=== PATIENT | male | born 1965 | race Caucasian/White ===

== ENCOUNTER 2023-05-22 22:54 | Emergency (ER) | payer BC ==
[2023-05-22] MEDS ORDERED: ACETAMINOPHEN 500 MG TABLET PO STA (23:17)
[2023-05-22] MEDS ORDERED: ceFAZolin (2G) 2 GM in SODIUM CHLORIDE 0.9% 100ML 100 ML IV STA (23:19)
[2023-05-22 23:42] LABS: BASOPHILS % (AUTO) 0.3 %; EOSINOPHILS # (AUTO) 0.1 10^3/uL (0.0-0.7); EOSINOPHILS % (AUTO) 0.9 %; HCT - HEMATOCRIT 37.7 % (42.0-52.0); HGB - HEMOGLOBIN 12.9 g/dL (14.0-18.0); LYMPHOCYTES # (AUTO) 0.6 10^3/uL (1.5-3.5); MEAN CORPUSCULAR HEMOGLOBIN 31.3 pg (27.0-31.0); MEAN CORPUSCULAR HGB CONC 34.2 g/dL (32.0-36.0); MEAN CORPUSCULAR VOLUME 91.5 fL (80.0-94.0); MEAN PLATELET VOLUME 10.2 fL (7.4-11.4); MONOCYTES # (AUTO) 0.4 10^3/uL (0.0-1.0); MONOCYTES % (AUTO) 6.9 %; NEUTROPHILS # (AUTO) 5.2 10^3/uL (1.5-6.6); NEUTROPHILS % (AUTO) 82.4 %; PLT - PLATELET COUNT 118 10^3/uL (130-450); RED BLOOD COUNT 4.12 10^6/uL (4.70-6.10); RED CELL DISTRIBUTION WIDTH 12.5 % (12.0-15.0); WHITE BLOOD COUNT 6.3 x10^3/uL (4.8-10.8)
[2023-05-22] MEDS ORDERED: ONDANSETRON 4 MG/2 ML VIAL IVP STA (23:54)
[2023-05-22 23:59] LABS: ALBUMIN 4.1 g/dL (3.2-5.5); ALBUMIN/GLOBULIN RATIO 1.3 (1.0-2.2); BILIRUBIN,TOTAL 0.9 mg/dL (0.2-1.0); CALCIUM 9.5 mg/dL (8.5-10.3); CREATININE 1.3 mg/dL (0.6-1.3); POTASSIUM 3.3 mmol/L (3.5-4.5); TOTAL PROTEIN 7.2 g/dL (6.4-8.9)
[2023-05-23] MEDS ORDERED: ceFAZolin 2 GM VIAL ONE (00:06)
[2023-05-23] MEDS ORDERED: ONDANSETRON 4 MG/2 ML VIAL ONE (00:09)
[2023-05-23] MEDS ORDERED: SODIUM CHLORIDE 0.9% 1,000 ML IV STA (00:27)
[2023-05-23] MEDS ORDERED: MAG HYDROX/AL HYDROX/SIMETH 30 ML UDC PO STA (00:47)
[2023-05-23] MEDS ORDERED: LIDOCAINE VISCOUS 2% 15 ML ORAL SYRINGE MM STA (00:47)
[2023-05-23] MEDS ORDERED: VANCOMYCIN INJ 1 GM in SODIUM CHLORIDE 0.9% 500 ML IV STA (01:03)
--- NOTE | 2023-05-23 01:03 | ED Physician Documentation ---
History of Present Illness - Stated complaint Stated Complaint: LT LEG SWOLLEN,LT LEG PX - Chief complaint Chief Complaint: Wound - History obtained from History obtained from: Patient - Additonal information Additional information: Patient is a 58-year-old male with no significant prior medical history presenting for evaluation of redness and swelling to his left lower leg that has been present for the past 2 days. He has reported feeling feverish. He states that his symptoms started Tuesday but he has had mosquito bites to the leg that he has been scratching at. Denies injury. He noticed the redness on Tuesday and has since been progressively worsening. No history of PE or DVT. He also reports he has been having nausea and vomiting since Tuesday. Currently reports feeling nauseous and also having some heartburn. Denies chest pain, shortness of air. Has recently gotten over bronchitis and reports still having some lingering congestion. Has not recently taken a COVID test. Review of Systems Constitutional: reports: Fever Nose: reports: Congestion Cardiac: denies: Chest pain / pressure Respiratory: denies: Dyspnea GI: reports: Nausea, Vomiting. denies: Abdominal Pain : denies: Dysuria Skin: reports: Rash PD PAST MEDICAL HISTORY - Past Medical History Past Medical History: No - Past Surgical History Past Surgical History: No - Present Medications Home Medications: Ambulatory Orders Medication Instructions Recorded Confirmed Ondansetron Odt [Zofran] 4 mg TL Q6H PRN #10 tablet 05/23/23 Sulfamethox/Trimeth 800/160 1 each PO BID #14 tablet 05/23/23 [Bactrim Ds 800/160] cephALEXin [Keflex] 500 mg PO Q6H #28 cap 05/23/23 - Allergies Allergies/Adverse Reactions: Allergies Allergy/AdvReac Type Severity Reaction Status Date / Time No Known Drug Allergies Allergy Verified 05/22/23 23:06 - Social History Does the pt smoke?: No Smoking Status: Never smoker Does the pt drink ETOH?: Yes ETOH Use: Beer, Liquor Does the pt have substance abuse?: No - Immunizations Immunizations are current?: Yes - POLST Patient has POLST: No PD ED PE NORMAL - General General: Alert and oriented X 3, No acute distress, Well developed/nourished - HEENT HEENT: Atraumatic, Moist mucous membranes, Pharynx benign - Neck Neck: Supple, no meningeal sign - Cardiac Cardiac: RRR, No murmur - Respiratory Respiratory: No respiratory distress, Clear bilaterally - Abdomen Abdomen: Normal bowel sounds, Soft, Non tender, Non distended - Extremities Extremities: Other (Multiple wounds to left anterior rodrigues consistent with history of insect bites, raised erythema involving the lower leg with surrounding faint blanching erythema extending proximally to thigh, distal pulses intact) - Neuro Neuro: Normal speech Results - Vitals Vitals: Vital Signs - 24 hr 05/22/23 05/22/23 05/23/23 23:03 23:53 00:10 Temperature 37.9 C Heart Rate 89 72 78 Respiratory 16 17 17 Rate Blood Pressure 169/87 H 149/89 H 171/97 H O2 Saturation 99 99 100 05/23/23 05/23/23 05/23/23 00:59 01:42 02:19 Temperature 37.4 C 37.2 C Heart Rate 72 70 68 Respiratory 16 16 16 Rate Blood Pressure 174/79 H 177/89 H 147/90 H O2 Saturation 100 98 100 05/23/23 05/23/23 03:01 03:53 Temperature 37.2 C Heart Rate 66 68 Respiratory 15 16 Rate Blood Pressure 140/88 H 149/86 H O2 Saturation 100 99 Oxygen O2 Source Room air - Labs Labs: Laboratory Tests 05/22/23 05/22/23 05/22/23 23:26 23:26 23:26 WBC 6.3 RBC 4.12 L Hgb 12.9 L Hct 37.7 L MCV 91.5 MCH 31.3 H MCHC 34.2 RDW 12.5 Plt Count 118 L MPV 10.2 Neut # (Auto) 5.2 Lymph # (Auto) 0.6 L [place] # (Auto) 0.4 Eos # (Auto) 0.1 Baso # (Auto) 0.0 Absolute Nucleated RBC 0.00 Nucleated RBC % 0.0 Sodium 128 L Potassium 3.3 L Chloride 92 L Carbon Dioxide 29 Anion Gap 7.0 BUN 17 Creatinine 1.3 Estimated GFR (MDRD) 57 L Glucose 133 H Lactic Acid 1.0 Calcium 9.5 Total Bilirubin 0.9 AST 33 ALT 29 Alkaline Phosphatase 56 Total Protein 7.2 Albumin 4.1 Globulin 3.1 Albumin/Globulin Ratio 1.3 SARS-CoV-2 (PCR) 05/22/23 23:30 WBC RBC Hgb Hct MCV MCH MCHC RDW Plt Count MPV Neut # (Auto) Lymph # (Auto) [place] # (Auto) Eos # (Auto) Baso # (Auto) Absolute Nucleated RBC Nucleated RBC % Sodium Potassium Chloride Carbon Dioxide Anion Gap BUN Creatinine Estimated GFR (MDRD) Glucose Lactic Acid Calcium Total Bilirubin AST ALT Alkaline Phosphatase Total Protein Albumin Globulin Albumin/Globulin Ratio SARS-CoV-2 (PCR) NOT DETECTED PD Medical Decision Making - ED course Complexity details: reviewed results, re-evaluated patient, d/w patient, d/w family ED course: Patient is a 58-year-old male presenting for evaluation of redness and swelling to his left lower leg. Patient had an area of mosquito bites to the left rodrigues that he has been scratching at and appears that he has developed an associated cellulitis. I do not see any fluctuance to suggest abscess or deep space infection. Patient has low-grade fever here of 37.9. Sepsis work-up initiated due to fever. Normal white count and negative lactic. Mild hyponatremia noted on labs. Patient has also recently had some nausea and vomiting for the past 2 days but abdominal exam is benign. Patient was treated with IV fluids, Zofran as well as IV antibiotics since he has not had much to eat or drink for the past 2 days. He is feeling better with treatment here. Patient appears appropriate for outpatient management of the cellulitis. Exam is more consistent with an infectious etiology versus a DVT. Patient counseled on treatment plan, need for follow-up as well as concerning symptoms to return for. Departure - Departure Disposition: 01 Home, Self Care Clinical Impression: Left leg cellulitis, Hyponatremia, Nausea & vomiting, Low grade fever Condition: Stable Instructions: ED Infec Skin Cellulitis Prescriptions: Sulfamethox/Trimeth 800/160 [Bactrim Ds 800/160] 1 each PO BID #14 tablet cephALEXin [Keflex] 500 mg PO Q6H #28 cap Ondansetron Odt [Zofran] 4 mg TL Q6H PRN #10 tablet PRN Reason: Nausea / Vomiting Comments: You were evaluated and treated for a skin infection to your left leg. I have given you a dose of IV antibiotics this evening and of also sent prescriptions for oral antibiotics to [facility] in [place]. Your sodium and potassium levels were slightly low today likely related to recent nausea and vomiting. I have also written a prescription for antinausea medications. Please make sure that you continue to try and stay hydrated. We have obtained blood cultures which will show if there is any spread of infection to your blood [employer] and notify you of any abnormal results. Your COVID test is negative. I would recommend close follow-up with her primary care provider. You should have your blood pressure rechecked. Please return to the emergency department with any worsening symptoms such as continued fever, increased redness, increased pain or any new concerns. Forms: PCP List Discharge Date/Time: 05/23/23 03:55
[2023-05-23] MEDS ORDERED: VANCOMYCIN 1 GM VIAL ONE ×2 (01:24→01:41)
[2023-05-23] MEDS ORDERED: VANCOMYCIN INJ 2 GM in SODIUM CHLORIDE 0.9% 500 ML IV STA (01:31)
[2023-05-23] MEDS ORDERED: ONDANSETRON ODT 4 MG Prepack 2 TL PRN (02:03)
[2023-05-23] MEDS ORDERED: ONDANSETRON ODT 4 MG Prepack 2 TL ONE (02:24)
[2023-05-23 04:01] VITALS: BP 149/86; O2SAT 99
== END 2023-05-23 03:55 | disposition home or self-care (01) ==
LOC: ED 22:54
DX: L03.116 Cellulitis of left lower limb (principal); E87.1 Hypo-osmolality and hyponatremia; R11.2 Nausea with vomiting, unspecified; R50.9 Fever, unspecified; Z20.822 Contact with and (suspected) exposure to COVID-19
CPT/HCPCS: 36415; 80053; 83605; 85025; 87040; 87635; 96365; 96366; 96367; 96375; 99283; 99284; A9270; J3370

== ENCOUNTER 2023-05-26 10:31 | Emergency (ER) | payer BC ==
[2023-05-26 10:49] VITALS: O2SAT 100
--- NOTE | 2023-05-26 11:58 | ED Physician Documentation ---
History of Present Illness - Stated complaint Stated Complaint: LT LEG SWELLING - Chief complaint Chief Complaint: Ext Problem - History obtained from History obtained from: Patient - History of Present Illness Timing: How many weeks ago (1) Pain level max: 5 Pain level now: 3 - Additonal information Additional information: Patient is a 58-year-old male who to the emergency department left lower extremity redness and swelling. This is been ongoing for about the past week. He states that he was having more pain previously and that is improving but feels like the swelling and redness are worsening. Apparently this started after scratching insect bites to the left lower extremity. No fevers. No chills. He states the redness has not really changed much. No nausea or vomiting. No abdominal pain. He is currently on Bactrim and Keflex at home. Does not take any other medications. No history of blood clots or DVTs. No history of diabetes. Review of Systems Constitutional: denies: Fever, Chills Respiratory: denies: Cough GI: denies: Abdominal Pain, Nausea, Vomiting : denies: Dysuria Musculoskeletal: denies: Neck pain, Back pain Neurologic: denies: Headache PD PAST MEDICAL HISTORY - Past Medical History Past Medical History: No - Past Surgical History Past Surgical History: No - Present Medications Home Medications: Ambulatory Orders Medication Instructions Recorded Confirmed Ondansetron Odt [Zofran] 4 mg TL Q6H PRN #10 tablet 05/23/23 05/26/23 Sulfamethox/Trimeth 800/160 1 each PO BID #14 tablet 05/23/23 05/26/23 [Bactrim Ds 800/160] cephALEXin [Keflex] 500 mg PO Q6H #28 cap 05/23/23 05/26/23 Amox/Clav 875/125 [Augmentin] 1 tab PO Q12H #20 tablet 05/26/23 Doxycycline Monohydrate 100 mg PO BID #20 cap 05/26/23 - Allergies Allergies/Adverse Reactions: Allergies Allergy/AdvReac Type Severity Reaction Status Date / Time No Known Drug Allergies Allergy Verified 05/22/23 23:06 - Social History Does the pt smoke?: No Smoking Status: Never smoker Does the pt drink ETOH?: Yes Does the pt have substance abuse?: No - Family History Family history: reports: Non contributory - Immunizations Immunizations are current?: Yes - POLST Patient has POLST: No PD ED PE NORMAL - Vitals Vital signs reviewed: Yes - General General: Alert and oriented X 3, No acute distress - HEENT HEENT: PERRL, Moist mucous membranes - Neck Neck: Supple, no meningeal sign - Cardiac Cardiac: RRR, Strong equal pulses - Respiratory Respiratory: No respiratory distress, Clear bilaterally - Abdomen Abdomen: Soft, Non tender, Non distended - Back Back: No spinal TTP - Derm Derm: Warm and dry, No rash - Extremities Extremities: Other (LLE - Moderate swelling to the left calf. Mild posterior calf tenderness. There is no erythema to the anterior and medial aspects of the calf. No significant warmth. No pustules or vesicles. Neurovascular intact. no crepitus or streaking) - Neuro Neuro: Alert and oriented X 3 - Psych Psych: Normal mood, Normal affect Results - Vitals Vitals: Vital Signs - 24 hr 05/26/23 05/26/23 10:39 13:09 Temperature 36.6 C Heart Rate 73 63 Respiratory 18 18 Rate Blood Pressure 167/91 H 173/95 H O2 Saturation 100 100 Oxygen O2 Source Room air - Labs Labs: Laboratory Tests 05/26/23 05/26/23 05/26/23 12:05 12:05 12:05 WBC 5.4 RBC 4.27 L Hgb 13.2 L Hct 39.7 L MCV 93.0 MCH 30.9 MCHC 33.2 RDW 12.6 Plt Count 211 MPV 9.8 Neut # (Auto) 3.5 Lymph # (Auto) 0.9 L [place] # (Auto) 0.5 Eos # (Auto) 0.3 Baso # (Auto) 0.0 Absolute Nucleated RBC 0.00 Nucleated RBC % 0.0 ESR 89 H Sodium 138 Potassium 4.6 H Chloride 104 Carbon Dioxide 27 Anion Gap 7.0 BUN 17 Creatinine 1.1 Estimated GFR (MDRD) 69 L Glucose 115 H Calcium 9.3 C-Reactive Protein 11.6 H - Rads (name of study) duplex US LLE Relevant Findings:: Final report received, See rad report PD Medical Decision Making - ED course Complexity details: reviewed results, re-evaluated patient, considered differential, d/w patient ED course: Patient with a continued cellulitis of the left lower extremity. Duplex ultrasound was ordered to rule out DVT. No DVT. Inflammatory markers remain elevated. The area is not itchy. We will change antibiotics to Augmentin and doxycycline. Patient is well-appearing, nontoxic. Afebrile. No evidence of sepsis. No indication for IV antibiotics. No pustules, vesicles. Patient counseled regarding signs and symptoms for which I believe and urgent re- evaluation would be necessary. Patient with good understanding of and agreement to plan and is comfortable going home at this time This document was made in part using voice recognition software. While efforts are made to proofread this document, sound alike and grammatical errors may occ ur. Departure - Departure Disposition: Home, Self Care Clinical Impression: Left leg cellulitis Condition: Good Instructions: ED Infec Skin Cellulitis Follow-Up: your,doctor in 1 week [Other] Prescriptions: Amox/Clav 875/125 [Augmentin] 1 tab PO Q12H #20 tablet Doxycycline Monohydrate 100 mg PO BID #20 cap Comments: Your prescriptions were sent to [facility] in [place]. Please follow-up with your doctor in 1 week for recheck. Please return sooner if you worsen. You can stop the Keflex and the Bactrim. There is no evidence of blood clot on your ultrasound today. Forms: PCP List Discharge Date/Time: 05/26/23 13:09
[2023-05-26 12:11] LABS: BASOPHILS % (AUTO) 0.6 %; EOSINOPHILS # (AUTO) 0.3 10^3/uL (0.0-0.7); EOSINOPHILS % (AUTO) 5.2 %; HCT - HEMATOCRIT 39.7 % (42.0-52.0); HGB - HEMOGLOBIN 13.2 g/dL (14.0-18.0); LYMPHOCYTES # (AUTO) 0.9 10^3/uL (1.5-3.5); LYMPHOCYTES % (AUTO) 17.1 %; MEAN CORPUSCULAR HEMOGLOBIN 30.9 pg (27.0-31.0); MEAN CORPUSCULAR HGB CONC 33.2 g/dL (32.0-36.0); MEAN PLATELET VOLUME 9.8 fL (7.4-11.4); MONOCYTES # (AUTO) 0.5 10^3/uL (0.0-1.0); NEUTROPHILS # (AUTO) 3.5 10^3/uL (1.5-6.6); NEUTROPHILS % (AUTO) 65.6 %; PLT - PLATELET COUNT 211 10^3/uL (130-450); RED BLOOD COUNT 4.27 10^6/uL (4.70-6.10); RED CELL DISTRIBUTION WIDTH 12.6 % (12.0-15.0); WHITE BLOOD COUNT 5.4 x10^3/uL (4.8-10.8)
[2023-05-26 12:34] LABS: CALCIUM 9.3 mg/dL (8.5-10.3); CREATININE 1.1 mg/dL (0.6-1.3); CRP - C-REACTIVE PROTEIN 11.6 mg/dL (<0.5); POTASSIUM 4.6 mmol/L (3.5-4.5)
--- NOTE | 2023-05-26 12:44 | Ultrasound Report ---
PROCEDURE: Duplex Ext Veins Left INDICATIONS: LLE pain and swelling TECHNIQUE: Real-time imaging, as well as color and pulse Doppler interrogation, were performed of the lower extr emity deep veins from the inguinal ligament to the popliteal fossa. Attempted visualization of the ca lf veins was performed. COMPARISON: None. FINDINGS: The deep veins are normally compressible, and free of intraluminal thrombus. Color and pu lse Doppler demonstrate normal phasic intraluminal flow. There is normal augmentation response to di stal compression maneuver. There is an enlarged left inguinal lymph node measuring 3.7 x 1.3 x 3.1 cm, which is likely reactive in nature. IMPRESSION: No deep venous thrombosis of the left lower extremity. Reviewed by: Paul Irving MD on 05/26/2023 12:43 PM PDT Approved by: Paul Irving MD on 05/26/2023 12:43 PM PDT Station ID: [id number]
[2023-05-26 13:14] VITALS: BP 173/95
== END 2023-05-26 13:09 | disposition home or self-care (01) ==
LOC: ED 10:31
DX: L03.116 Cellulitis of left lower limb (principal)
CPT/HCPCS: 36415; 80048; 85025; 85651; 86140; 99283; 99284

== ENCOUNTER 2023-06-06 17:43 | Inpatient (IN) | payer BC ==
[2023-06-06] MEDS ORDERED: VANCOMYCIN INJ 2 GM in SODIUM CHLORIDE 0.9% 500 ML IV STA (20:23)
[2023-06-06] MEDS ORDERED: PIPERACILLIN/TAZOBACTAM 3.375 GM in SODIUM CHLORIDE 0.9% MINIBAG 100 ML IV STA (20:24)
[2023-06-06 20:47] LABS: BASOPHILS # (AUTO) 0.1 10^3/uL (0.0-0.1); BASOPHILS % (AUTO) 0.7 %; EOSINOPHILS # (AUTO) 0.2 10^3/uL (0.0-0.7); EOSINOPHILS % (AUTO) 2.4 %; HCT - HEMATOCRIT 40.2 % (42.0-52.0); HGB - HEMOGLOBIN 13.2 g/dL (14.0-18.0); LYMPHOCYTES # (AUTO) 1.7 10^3/uL (1.5-3.5); MEAN CORPUSCULAR HEMOGLOBIN 30.8 pg (27.0-31.0); MEAN CORPUSCULAR HGB CONC 32.8 g/dL (32.0-36.0); MEAN CORPUSCULAR VOLUME 93.7 fL (80.0-94.0); MEAN PLATELET VOLUME 9.4 fL (7.4-11.4); MONOCYTES # (AUTO) 0.6 10^3/uL (0.0-1.0); MONOCYTES % (AUTO) 8.5 %; NEUTROPHILS # (AUTO) 4.7 10^3/uL (1.5-6.6); PLT - PLATELET COUNT 322 10^3/uL (130-450); RED BLOOD COUNT 4.29 10^6/uL (4.70-6.10); RED CELL DISTRIBUTION WIDTH 12.7 % (12.0-15.0); WHITE BLOOD COUNT 7.2 x10^3/uL (4.8-10.8)
[2023-06-06] MEDS ORDERED: VANCOMYCIN 1 GM VIAL ONE (20:49)
[2023-06-06 20:56] LABS: PARTIAL THROMBOPLASTIN TIME 32.6 secs (24.9-33.3)
[2023-06-06 21:00] LABS: ALBUMIN 4.2 g/dL (3.2-5.5); ALBUMIN/GLOBULIN RATIO 1.2 (1.0-2.2); BILIRUBIN,TOTAL 0.6 mg/dL (0.2-1.0); CREATININE 0.9 mg/dL (0.6-1.3); CRP - C-REACTIVE PROTEIN 3.7 mg/dL (<0.5); INR 1.2 (0.8-1.2); POTASSIUM 4.2 mmol/L (3.5-4.5); PT - PROTHROMBIN TIME 12.9 secs (9.9-12.6); TOTAL PROTEIN 7.7 g/dL (6.4-8.9)
[2023-06-06] MEDS ORDERED: MORPHINE 2 MG/ML CARPUJECT IVP STA (21:00)
--- NOTE | 2023-06-06 21:06 | ED Physician Documentation ---
History of Present Illness - Stated complaint Stated Complaint: L LEG PX - Chief complaint Chief Complaint: Ext Problem - History obtained from History obtained from: Patient - History of Present Illness Timing: How many weeks ago (several) Pain level max: 8 Pain level now: 8 - Additonal information Additional information: Patient is a 58-year-old male who presents to the emergency department left lower extremity swelling, redness and warmth. Ongoing for the past several weeks. He has been on several oral antibiotics including Keflex, Bactrim, Augmentin and doxycycline. The redness has continued to spread, now having drainage from the wounds. Also has scabbing to the leg. Had a negative ultrasound approximately 10 days ago. No fevers. No chills. Patient denies any other medical history. Nothing makes it better or worse. Review of Systems Constitutional: denies: Fever, Chills GI: denies: Nausea, Vomiting, Diarrhea Skin: denies: Rash Musculoskeletal: denies: Neck pain, Back pain Neurologic: denies: Headache PD PAST MEDICAL HISTORY - Past Medical History Past Medical History: No - Past Surgical History Past Surgical History: No - Present Medications Home Medications: Ambulatory Orders Medication Instructions Recorded Confirmed No Known Home Medications 06/06/23 06/06/23 - Allergies Allergies/Adverse Reactions: Allergies Allergy/AdvReac Type Severity Reaction Status Date / Time No Known Drug Allergies Allergy Verified 05/22/23 23:06 - Social History Does the pt smoke?: No Smoking Status: Never smoker Does the pt drink ETOH?: Yes Does the pt have substance abuse?: No - Immunizations Immunizations are current?: Yes - POLST Patient has POLST: No PD ED PE NORMAL - Vitals Vital signs reviewed: Yes - General General: Alert and oriented X 3, No acute distress - HEENT HEENT: Moist mucous membranes - Neck Neck: Supple, no meningeal sign - Cardiac Cardiac: RRR, Strong equal pulses - Respiratory Respiratory: No respiratory distress, Clear bilaterally - Abdomen Abdomen: Soft, Non tender, Non distended - Derm Derm: Warm and dry - Extremities Extremities: Other (LLE - Erythema, warmth and swelling to the left lower extremity, mainly around the calf. There is scabbing and open wounds to the medial aspect of the calf. No active drainage currently. No crepitus. Neurovascularly intact) - Neuro Neuro: Alert and oriented X 3 - Psych Psych: Normal mood, Normal affect Results - Vitals Vitals: Vital Signs - 24 hr 06/06/23 06/06/23 06/06/23 17:45 17:51 18:36 Temperature 36.7 C 36.8 C 36.8 C Heart Rate 77 76 76 Respiratory 20 18 18 Rate Blood Pressure 151/90 H 148/88 H 148/88 H O2 Saturation 100 100 100 06/06/23 21:00 Temperature Heart Rate 70 Respiratory 18 Rate Blood Pressure 129/79 O2 Saturation 98 Oxygen O2 Source Room air - Labs Labs: Laboratory Tests 06/06/23 06/06/23 06/06/23 20:39 20:39 20:39 WBC 7.2 RBC 4.29 L Hgb 13.2 L Hct 40.2 L MCV 93.7 MCH 30.8 MCHC 32.8 RDW 12.7 Plt Count 322 MPV 9.4 Neut # (Auto) 4.7 Lymph # (Auto) 1.7 [place] # (Auto) 0.6 Eos # (Auto) 0.2 Baso # (Auto) 0.1 Absolute Nucleated RBC 0.00 Nucleated RBC % 0.0 ESR PT 12.9 H INR 1.2 APTT 32.6 Sodium 139 Potassium 4.2 Chloride 103 Carbon Dioxide 29 Anion Gap 7.0 BUN 20 Creatinine 0.9 Estimated GFR (MDRD) 87 L Glucose 107 H Lactic Acid Calcium 9.0 Total Bilirubin 0.6 AST 17 ALT 23 Alkaline Phosphatase 73 C-Reactive Protein 3.7 H Total Protein 7.7 Albumin 4.2 Globulin 3.5 Albumin/Globulin Ratio 1.2 Lipase 17 06/06/23 06/06/23 20:39 20:39 WBC RBC Hgb Hct MCV MCH MCHC RDW Plt Count MPV Neut # (Auto) Lymph # (Auto) [place] # (Auto) Eos # (Auto) Baso # (Auto) Absolute Nucleated RBC Nucleated RBC % ESR 68 H PT INR APTT Sodium Potassium Chloride Carbon Dioxide Anion Gap BUN Creatinine Estimated GFR (MDRD) Glucose Lactic Acid 0.7 Calcium Total Bilirubin AST ALT Alkaline Phosphatase C-Reactive Protein Total Protein Albumin Globulin Albumin/Globulin Ratio Lipase PD Medical Decision Making - ED course Complexity details: reviewed results, re-evaluated patient, considered differential, d/w patient, d/w family ED course: 58-year-old male with what appears to be a worsening cellulitis of the left lower extremity. He has been on Augmentin, doxycycline, Bactrim and Keflex with no improvement of his symptoms. Wound culture will be obtained. Blood cultures obtained. Normal white blood cell count, but given the worsening cellulitis despite 4 different antibiotics, we will admit for IV antibiotics and further care. Had a negative ultrasound at his last ED visit. No evidence of DVT at that time. There are no beds available in the hospital [facility], therefore he will be boarded in the emergency department with the plan to be admitted in the morning following discharges. Patient is signed out to Dr. Montero for further care. This document was made in part using voice recognition software. While efforts are made to proofread this document, sound alike and grammatical errors may occur. Departure - Departure Disposition: 66 [facility] DC/[facility] Clinical Impression: Left leg cellulitis Condition: Stable Forms: PCP List
[2023-06-06] MEDS ORDERED: ONDANSETRON 4 MG/2 ML VIAL IVP PRN (21:34)
[2023-06-06] MEDS ORDERED: ACETAMINOPHEN 500 MG TABLET PO PRN (21:34)
[2023-06-06] MEDS ORDERED: PIPERACILLIN/TAZOBACTAM 3.375 GM in SODIUM CHLORIDE 0.9% MINIBAG 100 ML IV SCH (22:00)
[2023-06-06 23:34] LABS: BILIRUBIN,URINE NEGATIVE (NEGATIVE); GLUCOSE, URINE (UA) NEGATIVE (NEGATIVE); KETONES,URINE (UA) NEGATIVE (NEGATIVE); LEUKOCYTE ESTERASE, URINE NEGATIVE (NEGATIVE); NITRITE,URINE NEGATIVE (NEGATIVE); OCCULT BLOOD,URINE NEGATIVE (NEGATIVE); PROTEIN,URINE NEGATIVE (NEGATIVE); UROBILINOGEN,URINE 0.2 (NORMAL) E.U./dL (NORMAL)
[2023-06-06 23:39] LABS: CLARITY,URINE CLEAR (CLEAR)
[2023-06-07] MEDS: MORPHINE 2 MG/ML CARPUJECT IVP PRN ×3 (01:55→11:50)
[2023-06-07 05:24] LABS: BASOPHILS % (AUTO) 0.7 %; EOSINOPHILS # (AUTO) 0.1 10^3/uL (0.0-0.7); EOSINOPHILS % (AUTO) 2.3 %; HCT - HEMATOCRIT 33.9 % (42.0-52.0); HGB - HEMOGLOBIN 11.2 g/dL (14.0-18.0); LYMPHOCYTES # (AUTO) 1.4 10^3/uL (1.5-3.5); LYMPHOCYTES % (AUTO) 22.9 %; MEAN CORPUSCULAR HEMOGLOBIN 30.9 pg (27.0-31.0); MEAN CORPUSCULAR VOLUME 93.6 fL (80.0-94.0); MEAN PLATELET VOLUME 9.1 fL (7.4-11.4); MONOCYTES # (AUTO) 0.6 10^3/uL (0.0-1.0); MONOCYTES % (AUTO) 9.7 %; NEUTROPHILS # (AUTO) 3.8 10^3/uL (1.5-6.6); NEUTROPHILS % (AUTO) 64.1 %; PLT - PLATELET COUNT 243 10^3/uL (130-450); RED BLOOD COUNT 3.62 10^6/uL (4.70-6.10); RED CELL DISTRIBUTION WIDTH 12.8 % (12.0-15.0)
[2023-06-07 05:46] LABS: CALCIUM 8.3 mg/dL (8.5-10.3); CREATININE 1.1 mg/dL (0.6-1.3)
[2023-06-07] MEDS ORDERED: VANCOMYCIN 1 GM VIAL ONE (06:34)
[2023-06-07] MEDS ORDERED: PIPERACILLIN/TAZOBACTAM 3.375 GM in SODIUM CHLORIDE 0.9% MINIBAG 100 ML IV SCH (07:00)
[2023-06-07] MEDS ORDERED: PANTOPRAZOLE 40 MG TABLET PO SCH (07:00)
--- NOTE | 2023-06-07 07:37 | ED Physician Documentation ---
ED Addendum - Addendum Addendum: 06/07/23 07:36 The patient was signed out to me at change of shift, pending admission for cellulitis that is failed outpatient treatment. Unfortunately, we did not have any available inpatient beds overnight and so the patient had to board in the emergency department. He has received appropriate doses of antibiotics and at this point, we are going to have to wait for the morning report to determine whether there will be a bed available on the inpatient floor for the patient to be transferred to. At that time, if a bed is available, then we will be able to have a conversation with the hospitalist. The patient is signed out to the [facility] emergency physician Dr. Armstrong, pending the above.
[2023-06-07] MEDS ORDERED: VANCOMYCIN INJ 1 GM, VANCOMYCIN INJ 500 MG in SODIUM CHLORIDE 0.9% 500 ML IV SCH (09:00)
--- NOTE | 2023-06-07 09:24 | ED Physician Documentation ---
ED Addendum - Addendum Addendum: 06/07/23 09:23 58-year-old Philip Ashley reports that several weeks ago he returned from a trip to [place] where he was on his feet a lot and noted some swelling to his left lower extremity he was diagnosed with cellulitis and has failed outpatient management. He has had a change to his antibiotic and despite this had progression and presented to the emergency department last night with pain and increased swelling. Overnight he has had improvement in his symptoms. He continues to have significant swelling to the left lower extremity. A venous duplex was performed without evidence of deep vein thrombosis. The patient is 6 foot 6 inches tall and a arterial ultrasound is ordered with what appears to be poor healing to the skin. This study demonstrated normal blood flow to the lower extremity. The patient was eventually admitted into the hospital under the care of Dr. Lopez 06/07/23 13:20 06/07/23 19:28 Impression: Cellulitis lower ext failing out patient management. Plan: Admit for IV abx
--- NOTE | 2023-06-07 11:04 | Ultrasound Report ---
PROCEDURE: Duplex Lwr Ext Arterial LT INDICATIONS: poor healing TECHNIQUE: Color and pulse Doppler interrogation was performed of the left lower extremity arterial system, with image documentation. COMPARISON: None FINDINGS: Common femoral artery: 140 cm/sec, with normal flow. Deep femoral artery: 96 cm/sec, with normal flow. Proximal superficial femoral artery: 156 cm/sec, with normal flow. Mid superficial femoral artery: 158 cm/sec, with normal flow. Distal superficial femoral artery: 147 cm/sec, with normal flow. Popliteal artery: 107 cm/sec, with normal flow. Posterior tibial artery: 72 cm/sec, with normal flow. Anterior tibial artery/dorsalis pedis: 66/116 cm/sec, with normal flow. Felix-scale imaging description: No plaque visualized. IMPRESSION: No hemodynamic stenosis or plaque visualized within the left lower arterial vasculature. Reviewed by: Tiffany Kahn MD on 06/07/2023 11:02 AM PDT Approved by: Tiffany Kahn MD on 06/07/2023 11:02 AM PDT Station ID: [id number]
[2023-06-07] MEDS ORDERED: ONDANSETRON 4 MG/2 ML VIAL IVP PRN (13:23)
[2023-06-07] MEDS ORDERED: SODIUM CHLORIDE FLUSH 0.9% 10 ML SYRINGE IVP PRN (13:23)
--- NOTE | 2023-06-07 13:34 | HISTORY & PHYSICAL EXAMINATION ---
Chief Complaint - Chief Complaint Chief Complaint: L leg cellulitis, has failed 2 diff courses of antibx History of Present Illness - Admitted From Admitted From:: ED - History Obtained From History obtained from: ED provider and the pt - History of Present Illness HPI Comment/Other: This is a 58-year-old male who has a Hx of childhood asthma, but usually takes no medicines at home. He presented to the ED on 05/22/23 with c/o fever and shaking chills an left groinn and left leg swelling and was diagnosed with cellulitis and discharged from the ER to take Keflex and Bactrim. He presented back to the ED 3 days later with improvement in the groin swelling but worsening of the leg pain and swelling. A leg ultrasound was done then that ruled out a DVT. He had antibiotics changed to Augmentin and Doxycycline and was discharged from the ED. He comes back a third time now on 06/06/23 with more pain, worse redness, more diffuse swelling from the knee down, despite taking all the prescribed antibiotics. He also says there were blebs now on the medial lower left leg which occasionally ooze liquid. An arterial ultrasound was done to look for ischemia as a cause of poor leg healing and this was normal. Wound cultures and blood cultures have been obtained. His WBC is normal but ESR is abnormally elevated at 68. The patient has now been started on IV Vancomycin and Zosyn. The ED provider spoke to me about this patient. He will be admitted to the Hospitalist service for managing cellulitis that has failed outpatient treatment. History - Past Medical History Cardiovascular: reports: None Respiratory: reports: Asthma (Childhood asthma. Whenever he gets a URI it "settles in his lungs" and he has a 2-month cough) Neuro: reports: None Endocrine/Autoimmune: reports: None GI: reports: Ulcers (remote Hx) : reports: None HEENT: reports: None Psych: reports: None Musculoskeletal: reports: None Derm: reports: None MRSA Hx?: No - Family & Social History Family History: Father: Alive and Well, COPD/Emphysema Family History Comment/Other: His father has COPD. His daughter has asthma. Living arrangement: At home Living Situation: With spouse/s.o. Social History Notes: He does not smoke cigarettes and never did. He drinks 2 alcoholic drinks per day (whiskey usually). He has never had alcohol w ithdrawal. He uses no marijuana or any illicit drugs. He works at [employer] in [employer]. - Substance History Use: Uses substance without health or social issues: NONE - POLST Patient has POLST: No Meds/Allgy - Home Medications Home Medications: Ambulatory Orders Medication Instructions Recorded Confirmed No Known Home Medications 06/06/23 06/06/23 - Allergies Allergies/Adverse Reactions: Allergies Allergy/AdvReac Type Severity Reaction Status Date / Time No Known Drug Allergies Allergy Verified 05/22/23 23:06 Review of Systems - Constitutional Constitutional: reports: Fever (He had 2 days of fever on 05/21 and 05/22 but none since any of the antibiotics were started) - All Other Systems All Other Systems: reports: Reviewed and negative Exam - Vital Signs Reviewed Vital Signs: Yes Vital Signs: Vital Signs x48h Pulse Resp BP Pulse Ox 06/07/23 12:16 61 16 124/76 97 06/07/23 09:04 68 18 126/82 H 97 06/07/23 07:39 54 L 14 114/56 L 97 06/07/23 05:51 60 18 117/64 98 - Physical Exam General Appearance: positive: No acute distress, Other (Obese male, appears older than his age) Eyes Bilateral: positive: Normal inspection, EOMI ENT: positive: ENT inspection nml, No signs of dehydration Neck: positive: Nml inspection, No JVD Respiratory: positive: No respiratory distress, Breath sounds nml Cardiovascular: positive: Regular rate & rhythm, No murmur Abdomen: positive: Non-tender, No distention, Other (Obese) Skin: positive: Warm, Dry Extremities: positive: Other (Right leg looks normal and has normal DP pulse. Left leg is swollen from the knee down especially dorsum of the foot. The mid left rodrigues is red, warm, tender and has 2 open wounds, they are now bandaged. There is peeling skin on L medial rodrigues.) Neurologic/Psychiatric: positive: Oriented x3, Motor nml Conclusion/Plan - Problem List (1) Left leg cellulitis Conclusion/Plan: The patient has failed 2 different combinations of oral outpatient antibiotics Plan: Admit for inpatient IV antibiotics Give pain meds and antipyretics prn Await wound cultures and blood culture results Follow his ESR and/or CRP to assure we are getting treatment success Given his obesity (BMI 36), I will check an A1c to see if he has diabetes, as the reason that he is not healing this leg cellulitis as he should - Lab Results Fish Bones: 06/07/23 05:17 06/07/23 05:17 - Other Other Results/Comments: Attestation: The patient is expected to be hospitalized for greater than 2 midnights and is expected to be discharged or transferred to another facility within 96 hours: Yes.
--- NOTE | 2023-06-07 13:43 | ED Physician Documentation ---
ED Addendum - Addendum Addendum: 06/07/23 13:43 Patient was boarded overnight in the emergency department. A bed did become available, I discussed the case with Dr. Loyola, hospitalist who accepts. Patient will be admitted.
[2023-06-07] MEDS: PIPERACILLIN/TAZOBACTAM 3.375 GM in SODIUM CHLORIDE 0.9% MINIBAG 100 ML IV SCH (14:46)
[2023-06-07] MEDS ORDERED: HYDROcod/ACETAM 10 MG/325 MG TABLET PO PRN (15:32)
[2023-06-07] MEDS: ACETAMINOPHEN 325 MG TABLET PO PRN (15:48)
[2023-06-07] MEDS: SODIUM CHLORIDE FLUSH 0.9% 10 ML SYRINGE IVP SCH ×2 (15:49→22:34)
--- NOTE | 2023-06-07 18:45 | PHARMACY PROGRESS NOTE ---
- Best Possible Medication History Admit Date and Time: 06/07/23 1323 Processed by: Pharmacy Medication History completed: Yes Patient Interview: Completed As the person ultimately responsible for medication therapy, providers are able to order a medication from an existing home medication list in [facility] via the "Reconcile Routine" prior to Confirmation of that medication by desktop support technician. Such practice is discouraged except when the physician, in their clinical vern gment, deems that a medical need exists for a medication without regard to previous use.
[2023-06-07] MEDS: VANCOMYCIN INJ 1 GM, VANCOMYCIN INJ 500 MG in SODIUM CHLORIDE 0.9% 500 ML IV SCH (22:34)
[2023-06-08] MEDS: PIPERACILLIN/TAZOBACTAM 3.375 GM in SODIUM CHLORIDE 0.9% MINIBAG 100 ML IV SCH ×3 (01:35→19:54)
[2023-06-08 05:55] LABS: BASOPHILS % (AUTO) 0.6 %; EOSINOPHILS # (AUTO) 0.1 10^3/uL (0.0-0.7); EOSINOPHILS % (AUTO) 2.7 %; HCT - HEMATOCRIT 33.7 % (42.0-52.0); HGB - HEMOGLOBIN 11.1 g/dL (14.0-18.0); LYMPHOCYTES # (AUTO) 1.3 10^3/uL (1.5-3.5); LYMPHOCYTES % (AUTO) 26.1 %; MEAN CORPUSCULAR HEMOGLOBIN 30.8 pg (27.0-31.0); MEAN CORPUSCULAR HGB CONC 32.9 g/dL (32.0-36.0); MEAN CORPUSCULAR VOLUME 93.6 fL (80.0-94.0); MEAN PLATELET VOLUME 9.4 fL (7.4-11.4); MONOCYTES # (AUTO) 0.6 10^3/uL (0.0-1.0); MONOCYTES % (AUTO) 11.8 %; NEUTROPHILS # (AUTO) 2.8 10^3/uL (1.5-6.6); NEUTROPHILS % (AUTO) 58.2 %; PLT - PLATELET COUNT 236 10^3/uL (130-450); RED CELL DISTRIBUTION WIDTH 12.4 % (12.0-15.0); WHITE BLOOD COUNT 4.8 x10^3/uL (4.8-10.8)
[2023-06-08 06:06] LABS: CALCIUM 8.6 mg/dL (8.5-10.3); CREATININE 1.2 mg/dL (0.6-1.3); CRP - C-REACTIVE PROTEIN 6.8 mg/dL (<0.5); MAGNESIUM 1.8 mg/dL (1.7-2.3); POTASSIUM 4.1 mmol/L (3.5-4.5)
[2023-06-08] MEDS: ACETAMINOPHEN 325 MG TABLET PO PRN ×2 (06:52→23:46)
[2023-06-08] MEDS: ENOXAPARIN 40 MG/0.4 ML SYRINGE SUBQ SCH (09:25)
[2023-06-08] MEDS: SODIUM CHLORIDE FLUSH 0.9% 10 ML SYRINGE IVP SCH ×2 (09:29→16:42)
[2023-06-08] MEDS ORDERED: PIPERACILLIN/TAZOBACTAM 3.375 GM in SODIUM CHLORIDE 0.9% MINIBAG 100 ML IV SCH (10:00)
[2023-06-08 11:17] LABS: ESTIMATED AVERAGE GLUCOSE 117 mg/dL (70-100); HEMOGLOBIN A1c% 5.7 % (4.27-6.07)
--- NOTE | 2023-06-08 12:13 | XRAY Report ---
PROCEDURE: Chest for Line Placement INDICATIONS: Picc line placement TECHNIQUE: One view of the chest was acquired. COMPARISON: None. FINDINGS: Surgical changes and devices: None. Lungs and pleura: No pleural effusions or pneumothorax. Lungs are clear. Mediastinum: Mediastinal contours appear normal. Heart size is normal. Bones and chest wall: No suspicious bony lesions. Overlying soft tissues appear unremarkable. IMPRESSION: 1. Right arm PICC line is well-positioned. 2. No acute cardiopulmonary abnormality. Reviewed by: Parvez Velasquez on 06/08/2023 12:12 PM PDT Approved by: Parvez Velasquez on 06/08/2023 12:12 PM PDT Station ID: [id number]
--- NOTE | 2023-06-08 12:23 | PROVIDER PROGRESS NOTE ---
Subjective - Prog Note Date Prog Note Date: 06/08/23 Prog Note Time: 14:00 - Subjective Pt reports feeling: No change Subjective: Pt states he is able to ambulate better today; LLE pain is absent when he is resting and only returns when he lowers his leg such as when sitting upright. He also reports an intermittent intense pain near his L heel which he describes as "fireworks in my nerve, little explosions that make me want to itch." When discussing the possibility of diabetes, Mr. Ashley does not feel he experiences any "diabetic symptoms" which he describes as food craving and energy fluctuation throughout the day. Pt states he has history of minor leg wounds that have taken weeks to months to heal, which he feels is normal for him. Objective - Vital Signs/Intake & Output Reviewed Vital Signs: Yes Vital Signs: Vital Signs x48h Temp Pulse Resp BP Pulse Ox 06/08/23 08:00 36.6 C 63 16 128/66 94 Intake & Output: Intake & Output 06/05/23 06/06/23 06/07/23 06/08/23 23:59 23:59 23:59 23:59 Intake Total 600 1320 1380 Balance 600 1320 1380 - Objective General Appearance: positive: No acute distress, Alert Eyes Bilateral: positive: Normal inspection ENT: positive: ENT inspection nml, No signs of dehydration Neck: positive: Nml inspection, No JVD, Trachea midline Respiratory: positive: Chest non-tender Cardiovascular: positive: Regular rate & rhythm Abdomen: positive: Non-tender, No distention Skin: positive: Color nml, No rash, Warm, Dry, Other (Wounds on LLE: multiple areas w/ irregular borders in various stages of healing, approximately 25 x 8 c m. Stage 1 ulceration. Clean bandaging intact.) Extremities: positive: Pedal edema (L pedal edema) Neurologic/Psychiatric: positive: Oriented x3, Motor nml, Sensation nml, Mood/affect nml - Lab Results Fish Bones: 06/08/23 05:40 06/08/23 05:40 Other Labs: Lab Results x24hrs 06/08/23 06/08/23 06/08/23 Range/Units 05:40 05:40 05:40 WBC 4.8 (4.8-10.8) x10^3/uL RBC 3.60 L (4.70-6.10) 10^6/uL Hgb 11.1 L (14.0-18.0) g/dL Hct 33.7 L (42.0-52.0) % MCV 93.6 (80.0-94.0) fL MCH 30.8 (27.0-31.0) pg MCHC 32.9 (32.0-36.0) g/dL RDW 12.4 (12.0-15.0) % Plt Count 236 (130-450) 10^3/uL MPV 9.4 (7.4-11.4) fL Neut # (Auto) 2.8 (1.5-6.6) 10^3/uL Lymph # (Auto) 1.3 L (1.5-3.5) 10^3/uL Collier # (Auto) 0.6 (0.0-1.0) 10^3/uL Eos # (Auto) 0.1 (0.0-0.7) 10^3/uL Baso # (Auto) 0.0 (0.0-0.1) 10^3/uL Absolute Nucleated RBC 0.00 x10^3/uL Nucleated RBC % 0.0 /100WBC ESR 72 H (0-20) mm/Hr Sodium (135-145) mmol/L Potassium (3.5-4.5) mmol/L Chloride (101-111) mmol/L Carbon Dioxide (21-32) mmol/L Anion Gap (6-13) BUN (6-20) mg/dL Creatinine (0.6-1.3) mg/dL Estimated GFR (MDRD) (>89) Glucose (74-104) mg/dL Estimat Average Glucose 117 H (70-100) mg/dL Hemoglobin A1c % 5.7 (4.27-6.07) % Calcium (8.5-10.3) mg/dL Magnesium (1.7-2.3) mg/dL C-Reactive Protein (<0.5) mg/dL 06/08/23 Range/Units 05:40 WBC (4.8-10.8) x10^3/uL RBC (4.70-6.10) 10^6/uL Hgb (14.0-18.0) g/dL Hct (42.0-52.0) % MCV (80.0-94.0) fL MCH (27.0-31.0) pg MCHC (32.0-36.0) g/dL RDW (12.0-15.0) % Plt Count (130-450) 10^3/uL MPV (7.4-11.4) fL Neut # (Auto) (1.5-6.6) 10^3/uL Lymph # (Auto) (1.5-3.5) 10^3/uL Collier # (Auto) (0.0-1.0) 10^3/uL Eos # (Auto) (0.0-0.7) 10^3/uL Baso # (Auto) (0.0-0.1) 10^3/uL Absolute Nucleated RBC x10^3/uL Nucleated RBC % /100WBC ESR (0-20) mm/Hr Sodium 138 (135-145) mmol/L Potassium 4.1 (3.5-4.5) mmol/L Chloride 104 (101-111) mmol/L Carbon Dioxide 31 (21-32) mmol/L Anion Gap 3.0 L (6-13) BUN 13 (6-20) mg/dL Creatinine 1.2 (0.6-1.3) mg/dL Estimated GFR (MDRD) 62 L (>89) Glucose 116 H (74-104) mg/dL Estimat Average Glucose (70-100) mg/dL Hemoglobin A1c % (4.27-6.07) % Calcium 8.6 (8.5-10.3) mg/dL Magnesium 1.8 (1.7-2.3) mg/dL C-Reactive Protein 6.8 H (<0.5) mg/dL ABX Reporting Has patient been on IV antibiotics over the past 48 hours?: Yes Sepsis Event Note (H) - Evaluation Current Stage of Sepsis: Ruled out Assessment/Plan - Problem List (1) Left leg cellulitis Impression: Pt receiving daily dressing changes. When compared to intake photos, wound shows little improvement, but does not have worsening erythema, purulence, or swelling. Wound culture today shows 2 organisms: beta hemolytic Group B Strep a nd coagulase negative staph. Once final wound culture has resulted, abx may be further narrowed, however pt receiving appropriate coverage with current vancomycin and zosyn. Discussed wound debridement to facilitate healing; pt is receptive to procedure. Plan: Continue daily IV infusions of vancomycin and zosyn. Notified Dr. Daniels for surgical consult; wound debridement will likely occur within next 1-2 days, pending surgeon scheduling. Tylenol, Motrin, and oxycodone ordred PRN for pain management. (2) Borderline Type 2 diabetes mellitus Impression: Mr. Ashley has an ongoing LLE infection that has persisted despite 2x separate regimens of abx. He reports prior leg wounds have experienced delayed healing. His fasting glucose readings have all been high since presenting to the ED. He also does not have a documented PCP for glucose monitoring/management. Even with a recent arterial U/S showing no current ischemia, diabetes was considered to be contributing to his complicated cellulitis. Hgb A1c was obtained upon admission and found to be 5.7% which is in range for pre-diabetes. Plan: Monitor patient via daily POC glucose readings and consider metformin/insulin administration. Pt ordered inpatient diabetic diet. Will set pt up with diabetic education prior to discharge.
[2023-06-08] MEDS ORDERED: LORazepam 2 MG/ML VIAL IVP PRN (12:34)
[2023-06-08] MEDS: VANCOMYCIN INJ 1 GM, VANCOMYCIN INJ 500 MG in SODIUM CHLORIDE 0.9% 500 ML IV SCH ×2 (13:00→22:50)
[2023-06-08] MEDS: INSULIN LISPRO 300 UNIT/3 ML PEN SUBQ SCH ×2 (17:19→21:09)
[2023-06-08 22:38] LABS: VANCOMYCIN,TROUGH 14.2 ug/mL
[2023-06-09 00:05] VITALS: O2SAT 99
[2023-06-09] MEDS: SODIUM CHLORIDE FLUSH 0.9% 10 ML SYRINGE IVP SCH ×2 (00:33→08:25)
[2023-06-09] MEDS: PIPERACILLIN/TAZOBACTAM 3.375 GM in SODIUM CHLORIDE 0.9% MINIBAG 100 ML IV SCH ×2 (04:26→13:33)
[2023-06-09] MEDS: INSULIN LISPRO 300 UNIT/3 ML PEN SUBQ SCH ×2 (08:25→12:46)
[2023-06-09] MEDS: ACETAMINOPHEN 325 MG TABLET PO PRN (08:25)
[2023-06-09] MEDS: ENOXAPARIN 40 MG/0.4 ML SYRINGE SUBQ SCH (08:25)
[2023-06-09] MEDS ORDERED: THIAMINE 100 MG TABLET PO SCH (09:00)
[2023-06-09 09:04] VITALS: BP 114/76
--- NOTE | 2023-06-09 09:19 | DISCHARGE SUMMARY ---
Discharge Summary Admit Date: 06/06/23 Discharge Date: 06/09/23 Discharging Provider: Elke Loyola MD Primary Care Provider: None currently Code Status: Attempt Resuscitation Condition at Discharge: Fair Discharge Disposition: 01 Home, Self Care Discharge Facility Name: N/A - [facility] History of Present Illness: Mr. Ashley presented to the ED on 05/22/23, c/o fever, chills, and left groin/leg swelling; he was diagnosed with cellulitis, discharged home from ED w/ Keflex and Bactrim. 3 days later, he returned to the ED with worsening of the leg pain and swelling, but improvement in the groin swelling. Negative DVT per L leg U/S. He was switched to Augmentin and Doxycycline and discharged from ED. On 06/06/23, he returns to ED with more pain, worse redness, more diffuse swelling distal from the knee, despite taking all the prescribed antibiotics. He reports blebs on medial lower left leg which occasionally ooze liquid. Arterial U/S for ischemia was normal. Patient started on IV Vancomycin and Zosyn. He was admitted to the Hospitalist service to manage cellulitis which has failed outpatient treatment. - CONSULTS | PROCEDURES Consultations: Dr. Daniels, General surgery - HOSPITAL COURSE Hospital Course: (1) Left Leg Cellulitis Patient started on IV Vancomycin and Zosyn while in ED, continued during his admission. Wound culture shows 2 organisms: beta hemolytic Group B Strep and coagulase negative Staph, which is non-MRSA. Vancomycin was discontinued as MRSA was ruled out. He will continue Augmentin PO, 875 mg BID for 10x days, to provide coverage for the ongoing infection and given return precautions should he develop new symptoms related to the wound. When compared to intake photos, wound shows little improvement, but does not have worsening erythema, purulence, or swelling. Consulted Dr. Daniels, surgeon on-call, to assess wound debridement, which was deemed not necessary. Dr. Daniels advised 2x daily dressing changes, layered w/ xeroform, gauze roll, and secured w/ LU wrap to promote gradual eschar sloughing along with compression. Pt instructed on steps for dressing change at home; also provided information for wound care f/u. (2) Borderline diabetes mellitus Mr. Ashley's fasting glucose readings were high since presenting to ED. Diabetes was considered a contributing factor to his complicated cellulitis; Hgb A1c during admission was 5.7%, in range for pre-diabetes. His glucose was monitored after this finding and found to be within acceptable ranges w/ no further intervention required. Pt reports he is motivated to make changes to his diet and exercise to avoid advancing his diabetic status. Pt was provided education on dietary and lifestyle modification from our [employer] prior to discharge. - ALLERGIES Allergies/Adverse Reactions: Allergies Allergy/AdvReac Type Severity Reaction Status Date / Time No Known Drug Allergies Allergy Verified 05/22/23 23:06 - MEDICATIONS Home Medications: Ambulatory Orders Medication Instructions Recorded Confirmed Amox/Clav 875/125 [Augmentin 1 tablet PO Q12H 10 Days #20 tablet 06/09/23 875/125 Tab] Bismuth Tribromoph/Petrolatum 2 each TP BID #40 each 06/09/23 [Xeroform Non-Occlusive 4"X9'] Elastic Bandage 1 each TP BID #2 each 06/09/23 Gauze Bandage [Gauze Bandage Roll] 1 each TP BID #20 each 06/09/23 - PHYSICAL EXAM AT DISCHARGE General Appearance: positive: No acute distress, Alert Eyes Bilateral: positive: Normal inspection ENT: positive: ENT inspection nml, No signs of dehydration Neck: positive: Nml inspection, Thyroid nml, No JVD Respiratory: positive: Chest non-tender, No respiratory distress Cardiovascular: positive: Regular rate & rhythm Abdomen: positive: Non-tender, No organomegaly, No distention Skin: positive: Color nml, Warm, Dry, Other (Wounds on LLE: multiple areas w/ irregular borders and eschar, in various stages of healing, approximately 25 x 8 cm. Stage 1 ulceration. Clean bandaging intact.) Extremities: positive: Pedal edema (Left side) Neurologic/Psychiatric: positive: Oriented x3, Motor nml, Sensation nml, Mood/affect nml - LABS Result Diagrams: 06/08/23 05:40 06/08/23 05:40 - SEPSIS Current Stage of Sepsis: Ruled out - FOLLOW UP Follow Up: Follow up w/ wound care clinic for further evaluation and outpatient management of cellulitis. - TIME SPENT Time Spent in Discharge (Minutes): 45
--- NOTE | 2023-06-09 09:36 | CONSULTATION NOTE ---
Surgery Consult - Admit Date Hospital Admission Date: 06/07/23 - Consult Date Consult Date: 06/09/23 Requesting Provider: Dr. Loyola - Chief Complaint Chief Complaint: LLE infection - Home Meds/Allergies Home Medications: Patient History Medication Instructions Recorded Confirmed No Known Home Medications 06/06/23 06/06/23 Allergies/Adverse Reactions: Allergies Allergy/AdvReac Type Severity Reaction Status Date / Time No Known Drug Allergies Allergy Verified 05/22/23 23:06 - Vital Signs Vital Signs: Last Vital Signs Temp 98.2 F 06/09/23 07:50 Pulse 52 L 06/09/23 07:50 Resp 18 06/09/23 07:50 BP 114/76 06/09/23 07:50 Pulse Ox 99 06/09/23 07:50 O2 Flow Rate Intake & Output: Intake & Output 06/06/23 06/07/23 06/08/23 06/09/23 23:59 23:59 23:59 23:59 Intake Total 600 1320 3560 1385 Balance 600 1320 3560 1385 - Lab Results Result Diagrams: 06/08/23 05:40 06/08/23 05:40 - Consultation Note Consultation Note: S: I am asked to see Philip in consultation from Dr. Loyola for a left lower extremity infection. This occurred several weeks ago while he was visiting [place]. He does not remember injuring the left but he did notice several bug bites which seems to have started the infection. It began as pain, swelling, and erythema about the medial and posterior aspect of the left leg below the knee. He initially had fevers, chills, nausea and sweats but these symptoms resolved within a day. The redness and swelling worsened and he was seen in the ED on several occasions and prescribed different antibiotics but the left leg pain and swelling worsened and he develops superficial eschars over several areas that prompted admission to this facility on 06/07/23. Blood cultures were obtained and were negative but cultures of the leg wound identified B-hemolytic strep. He was started on Zosyn and this seemed to improve the erythema. He is to be discharged today and because of several superficial eschar's located over the medial and posterior aspect of the leg, I was asked to determine if surgical debridement was necessary at this time. O: VSS, afeb; AAO; Pleasant and cooperative Left leg below the knee demonstrates erythema and edema of the led to the ankle with edema of the dorsum of the left foot. There are no weeping wounds and there is no cellulitis although the intact epidermis about the eschars has a pink hue. The eschars seem superficial, dry, and should soon auto-amputate. The epidermis of the leg appears somewhat dry. There is no drainage. The length of the involved area is 25-30 cm and the width is maybe 10 cm and includes the posterior and anterior aspect of the calf. The eschars are in two separate locations by intact and healthy skin. The admission photos in "Notes" are helpful. A: LLE cellulitis with superficial skin eschars. The infection seems to be improving and the eschars should auto-amputate with daily leg hygiene using soap and water and Vaseline or hydrogel dressings twice a day. Surgical debridement is not indicated at this point in time. Recommendation: 1) Daily showers and wash the left leg gently with soap and water to gradually dislodge the eschars 2) Vaseline gauze twice a day over the eschars and wrapped with Kerlex rolled gauze secured with an tayo wrap from the toes to the upper leg until seen by the out-patient wound clinic 3) Consult out-patient wound clinic for hydrogel wound care 4) 5-7 day course of oral antibiotics for the strep infection Chris Daniels MD General Surgery Service
--- NOTE | 2023-06-09 10:15 | Discharge Plan ---
Discharge Plan Problem Reviewed?: Yes Disposition: Home, Self Care Condition: Fair Prescriptions: Amox/Clav 875/125 [Augmentin 875/125 Tab] 1 tablet PO Q12H 10 Days #20 tablet Elastic Bandage 1 each TP BID #2 each Gauze Bandage [Gauze Bandage Roll] 1 each TP BID #20 each Bismuth Tribromoph/Petrolatum [Xeroform Non-Occlusive 4"X9'] 2 each TP BID #40 each Diet: Diabetic (Please decrease your intake of alcohol, starches and sweets, being a prediabetic) Activity Restrictions: Activity as Tolerated Shower Restrictions: No Driving Restrictions: No Assistance Devices: Cane Health Concerns: You were hospitalized to treat leg cellulitis with open leg wounds. You are being discharged home to manage the wounds of the left leg. Also a prescription to take 10 more days of oral antibiotics has been electronically sent to your [facility] pharmacy in [place]. Take the first pill of Augmentin this evening. It is okay to take a shower and clean the leg wounds gently with soap and water. Twice a day, change the bandages. First apply a Xeroform gauze onto the darkened wounds, cover that with a gauze bandage roll. Then wrap the foot starting just under the toes and all the way to up to below the knee. using the Darnell elastic wrap. Keep the leg elevated to decrease the swelling which will help with pain and expedite healing. You need to establish care with a Primary Care Provider or go to a Walk-in Clinic within a week. You then need referral to the Wound Clinic, here in the [facility] building. The Wound Clinic should start seeing you in 1-2 weeks and will probably advise changes in your wound management weekly. Your blood test show you have prediabetes. You were seen by the hospital Dietitian and recommendations reviewed for how to prevent becoming a full diabetic. Please decrease your intake of alcohol, starches and sweets. Plan of Treatment: As above. Care Goals: Improvement in symptoms and stabilization are the goals. Assessment: The patient understands the advised plan. Additional Instructions or Follow Up instructions: If you have new or worsening symptoms (such as red streaks going up your leg), call your PCP for advise, go to a Walk-In Clinic, or come to the ER. Follow-Up Care: [facility] [place] [facility] - Wound/Ostomy No Smoking: If you smoke, Please STOP! Call for help.
[2023-06-09] MEDS: VANCOMYCIN INJ 1 GM, VANCOMYCIN INJ 500 MG in SODIUM CHLORIDE 0.9% 500 ML IV SCH (11:00)
== END 2023-06-09 14:05 | disposition home or self-care (01) | DRG 603 ==
LOC: ED 17:43 → MS2 06-07 13:23
PROVIDERS: ADMIT Internal Medicine; ATTEND Internal Medicine
DX: L03.116 Cellulitis of left lower limb (principal); B95.1 Streptococcus, group B, as the cause of diseases classified elsewhere; B95.7 Other staphylococcus as the cause of diseases classified elsewhere; R73.03 Prediabetes; J45.909 Unspecified asthma, uncomplicated; E66.9 Obesity, unspecified; Z68.35 Body mass index [BMI] 35.0-35.9, adult
CPT/HCPCS: 36415; 80048; 80053; 80202; 81003; 83036; 83605; 83690; 83735; 85025; 85610; 85651; 85730; 86140; 87040; 87070; 87077; 87205; 93926; 96365; 96366; 96367; 96368; 96375; 96376; 97161; 99284; 99285; A9270; J1650; J3370; 81001; 87086

== ENCOUNTER 2024-02-26 17:51 | Emergency (ER) | payer BC ==
[2024-02-26 18:21] VITALS: BP 150/89; O2SAT 99
--- NOTE | 2024-02-26 19:58 | ED Physician Documentation ---
History of Present Illness - Stated complaint Stated Complaint: FEVER/SOA/DIZZY - Chief complaint Chief Complaint: Fever - History obtained from History obtained from: Patient, Family - History of Present Illness Timing: Prior to arrival - Treatment prior to arrival Treatment prior to arrival: Patient is a 59-year-old male presents to the emergency department with no significant past medical history. Patient presents with right lower extremity redness. He notes symptoms started within the last day. He has some mild redness to it yesterday and today developed chills fevers to 102 and dizziness lightheadedness and feelings of shortness of breath. He notes he has no chest pain associated with his symptoms and redness started suddenly in his right leg. He notes symptoms seem to be worsening and feels pain and s palpable lymph nodes to right anterior thigh as well. He notes he had similar symptoms occurred similarly last year in may. He was admitted for IV antibiotics after failing outpatient antibiotics patient was noted to be growing group B strep on admission and he was given IV antibiotics in the hospital. Patient notes fever seems to have resolved he did not take any Tylenol or ibuprofen today no recent antibiotic use he denies any recent trauma to the leg. No recent travel he denies any bug bites no wounds to the area no history of type 2 diabetes. PD PAST MEDICAL HISTORY - Past Medical History Cardiovascular: None Respiratory: None Neuro: None Endocrine/Autoimmune: None GI: None : None HEENT: None Psych: None Musculoskeletal: None Derm: None - Past Surgical History Past Surgical History: No HEENT: Tonsil/Adenoidectomy - Present Medications Home Medications: Ambulatory Orders Medication Instructions Recorded Confirmed clindamycin HCL [Cleocin HCl] 450 mg PO TID 10 Days #30 cap 02/26/24 - Allergies Allergies/Adverse Reactions: Allergies Allergy/AdvReac Type Severity Reaction Status Date / Time No Known Drug Allergies Allergy Verified 05/22/23 23:06 - Social History Does the pt smoke?: No Smoking Status: Never smoker Does the pt drink ETOH?: Yes Does the pt have substance abuse?: No - Immunizations Immunizations are current?: Yes - POLST Patient has POLST: No PD ED PE NORMAL - Vitals Vital signs reviewed: Yes - General General: Alert and oriented X 3 - HEENT HEENT: Atraumatic - Neck Neck: Supple, no meningeal sign - Cardiac Cardiac: RRR, No murmur, No gallop - Respiratory Respiratory: No respiratory distress, Clear bilaterally - Abdomen Abdomen: Soft - Derm Derm: Warm and dry (No significant swelling but redness noted to right anterior leg with sharp demarcation to pretibial area. Mild warmth on palpation area extends from right ankle to below the knee. No significant pain edema noted pulses intact distally. Sensation intact bilaterally. Full range of motion intact no), Other - Neuro Neuro: Alert and oriented X 3 Verbal: Oriented - Free text exam Free text exam: Significant erythema noted to right leg without any significant pain and edema no significant Swelling compared to left leg no varicose veins present. No significant swelling of the leg. No significant tenderness sharp demarcation of erythema noted to right leg compared to left leg pulses intact full range of motion of left leg intact palpable lymphadenopathy in right inguinal region. Results - Vitals Vitals: Vital Signs - 24 hr 02/26/24 18:08 Temperature 37.7 C Heart Rate 100 Respiratory 20 Rate Blood Pressure 150/89 H O2 Saturation 99 Oxygen O2 Source Room air - Labs Labs: Laboratory Tests 02/26/24 02/26/24 20:20 20:20 WBC 10.6 RBC 4.23 L Hgb 13.5 L Hct 38.9 L MCV 92.0 MCH 31.9 H MCHC 34.7 RDW 12.5 Plt Count 152 MPV 9.6 Neut # (Auto) 9.1 H Lymph # (Auto) 1.0 L [place] # (Auto) 0.5 Eos # (Auto) 0.0 Baso # (Auto) 0.0 Absolute Nucleated RBC 0.00 Nucleated RBC % 0.0 Lactic Acid 0.9 PD Medical Decision Making - ED course Complexity details: reviewed old records ED course: Patient is a 59-year-old male past medical history does have history of cellulitis to left leg comes in today with erythema to right leg. Patient notes persistent redness fevers and mild shortness of breath earlier today. Patient comes in vitals on arrival show mild tachycardia to 100 bpm patient patient is afebrile though saturating well on room air. Mild erythema noted to right leg pretibial region. Sharp demarcation noted on physical exam he has good pulses intact distally full range of motion of right leg intact his no significant calf swelling no pitting edema no superficial collateral veins present no entire leg swelling no streaking up the leg and mild inguinal palpable lymphadenopathy noted. On arrival mild leukocytosis noted at 10 however normal lactic acid. CMP shows slight elevation in creatinine baseline is 1.3 today's baseline is 1.6. Patient denies any nausea vomiting or signs of dehydration today. No elevation in lactic acid. Discussed with patient given reassuring labs and vitals remained stable here in the emergency department symptoms most likely secondary to cellulitis patient's leg cleared for DVT using Wells criteria. 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 Patient will be given first dose of IV antibiotics here and will be discharged home on oral antibiotics. Instructed patient to return with any worsening fevers chills pain swelling streaking up the leg or any other new or worsening symptoms. Patient understands and is agreeable with this plan. Patient given clindamycin given history of group B strep cellulitis and to cover for possible MRSA however low suspicion at this time. Patient understands and is agreeable with this plan. Departure - Departure Forms: PCP List
[2024-02-26 20:26] LABS: BASOPHILS % (AUTO) 0.3 %; EOSINOPHILS % (AUTO) 0.2 %; HCT - HEMATOCRIT 38.9 % (42.0-52.0); HGB - HEMOGLOBIN 13.5 g/dL (14.0-18.0); MEAN CORPUSCULAR HEMOGLOBIN 31.9 pg (27.0-31.0); MEAN CORPUSCULAR HGB CONC 34.7 g/dL (32.0-36.0); MEAN PLATELET VOLUME 9.6 fL (7.4-11.4); MONOCYTES # (AUTO) 0.5 10^3/uL (0.0-1.0); MONOCYTES % (AUTO) 4.3 %; NEUTROPHILS # (AUTO) 9.1 10^3/uL (1.5-6.6); NEUTROPHILS % (AUTO) 85.7 %; PLT - PLATELET COUNT 152 10^3/uL (130-450); RED BLOOD COUNT 4.23 10^6/uL (4.70-6.10); RED CELL DISTRIBUTION WIDTH 12.5 % (12.0-15.0); WHITE BLOOD COUNT 10.6 x10^3/uL (4.8-10.8)
[2024-02-26 20:41] LABS: ALBUMIN 4.2 g/dL (3.2-5.5); ALBUMIN/GLOBULIN RATIO 1.6 (1.0-2.2); BILIRUBIN,TOTAL 0.8 mg/dL (0.2-1.0); CALCIUM 9.2 mg/dL (8.5-10.3); CREATININE 1.6 mg/dL (0.6-1.3); POTASSIUM 3.7 mmol/L (3.5-4.5); TOTAL PROTEIN 6.8 g/dL (6.4-8.9)
[2024-02-26] MEDS ORDERED: SODIUM CHLORIDE 0.9% 50 ML IV ONE (21:30)
[2024-02-26] MEDS: CLINDAMYCIN 600 MG/50 ML 50 ML IV ONE (21:58)
[2024-02-26] MEDS: CLINDAMYCIN INJ 300 MG in SODIUM CHLORIDE 0.9% 50 ML IV STA (21:58)
[2024-02-26] MEDS: CLINDAMYCIN 600 MG/50 ML IV ONE (22:00)
== END 2024-02-26 22:30 | disposition home or self-care (01) ==
LOC: ED 17:51
DX: L03.115 Cellulitis of right lower limb (principal)
CPT/HCPCS: 36415; 80053; 83605; 85025; 96374; 99283; 99284; J7040

== ENCOUNTER 2024-03-05 07:00 | Outpatient (CLI) | payer BC | END 2024-03-05 23:59 | disposition home or self-care (01) | LOC: LAB.S 07:00 | PROVIDERS: ATTEND Registered Nurse | DX: L98.9 Disorder of the skin and subcutaneous tissue, unspecified (principal) | CPT/HCPCS: 87070; 87075; 87186 ==

== ENCOUNTER 2024-03-24 19:19 | Emergency (ER) | payer BC ==
[2024-03-24 19:36] VITALS: BP 171/95; O2SAT 98
--- NOTE | 2024-03-24 19:45 | ED Physician Documentation ---
History of Present Illness - Stated complaint Stated Complaint: FEVER/LEG/FOOT PX - Chief complaint Chief Complaint: Wound - History obtained from History obtained from: Patient - Additonal information Additional information: HPI from patient. Patient complains of right lower leg swelling, erythema, pain and tenderness. He says the affected area is hot to touch. He had a fever earlier today to a T max of 101. He has ongoing problems with cellulitis of the right lower leg and the area associate with his chief complaint today. He was put on Bactrim for 1 week beginning earlier this month (March 10), and, at that time, his primary care provider also undertook a wound culture from the area which grew out Aeromonas hydrophilia. Last month, he was given a course of clindamycin and he says this seemed to lead to near-resolution of the cellulitis whereas the Bactrim seem to make significant difference/improvement. He presents tonight due to the signs and symptoms becoming worse over the course of the day today. PD PAST MEDICAL HISTORY - Past Medical History Past Medical History: Yes Cardiovascular: None Respiratory: None Neuro: None Endocrine/Autoimmune: None GI: None : None HEENT: None Psych: None Musculoskeletal: None Derm: None Other Past Medical History: cellulitis. chronic foot wound - Past Surgical History Past Surgical History: No HEENT: Tonsil/Adenoidectomy - Present Medications Home Medications: Ambulatory Orders Medication Instructions Recorded Confirmed clindamycin HCL [Cleocin HCl] 450 mg PO TID 10 Days #30 cap 02/26/24 Ciprofloxacin HCl [Cipro] 500 mg PO BID #19 tablet 03/24/24 - Allergies Allergies/Adverse Reactions: Allergies Allergy/AdvReac Type Severity Reaction Status Date / Time No Known Drug Allergies Allergy Verified 05/22/23 23:06 - Social History Does the pt smoke?: No Smoking Status: Never smoker Does the pt drink ETOH?: Yes Does the pt have substance abuse?: No - Immunizations Immunizations are current?: Yes - POLST Patient has POLST: No PD ED PE NORMAL - Vitals Vital signs reviewed: Yes - General General: Alert and oriented X 3, No acute distress, Well developed/nourished PD ED PE EXPANDED - Extremities DAFNE LE visual: 1 - rash (confluent raised erythema with TTP and 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 I reviewed the culture from the outpatient setting that was undertaken earlier this month (March 10). The culture grew Aeromonas hydrophilia with only resistances to imipenem, meropenem and Zosyn. The sensitivities do indicate the include Rocephin to ceftriaxone), Cipro, Levaquin, Bactrim, and several other antibiotics. He is given 1 g IM Rocephin in the emergency department along with 500 mg p.o. ciprofloxacin and provided a prescription for a 10-day course of the ciprofloxacin (electronically submitted to [facility] in [place]). Return precautions are reviewed. I advised him to contact his primary care provider's office when they are next open to arrange the next available appo intment for follow-up/reevaluation, ideally within 3 to 5 days. Departure - Departure Disposition: 01 Home, Self Care Clinical Impression: Cellulitis Qualifiers: Site of cellulitis: extremity Site of cellulitis of extremity: lower extremity Laterality: right Qualified Code(s): L03.115 - Cellulitis of right lower limb Condition: Good Instructions: ED Infec Skin Cellulitis Prescriptions: Ciprofloxacin HCl [Cipro] 500 mg PO BID #19 tablet Comments: You were given a 1-time dose of of an antibiotic injection (ceftriaxone) in the emergency department as well as the first dose of an oral antibiotic (cip rofloxacin). I have electronically submitted a 10-day course of the ciprofloxacin to the [facility] in [place]. Contact your primary care provider's office when they are next open to arrange for an appointment for recheck of the infection, ideally you should be reevaluated within the next 3 to 5 days. Discharge Date/Time: 03/24/24 20:25
[2024-03-24] MEDS: LIDOCAINE 1% 2 ML VIAL MC ONE (20:15)
[2024-03-24] MEDS: cefTRIAXone 1 GM VIAL IM STA (20:15)
[2024-03-24] MEDS: CIPROFLOXACIN 250 MG TABLET PO STA (20:15)
== END 2024-03-24 20:25 | disposition home or self-care (01) ==
LOC: ED 19:19
DX: L03.115 Cellulitis of right lower limb (principal)
CPT/HCPCS: 96372; 99283; A9270

== ENCOUNTER 2024-03-25 20:24 | Emergency (ER) | payer BC ==
--- NOTE | 2024-03-25 20:36 | ED Physician Documentation ---
History of Present Illness - Stated complaint Stated Complaint: R LEG PX - Chief complaint Chief Complaint: Wound - History obtained from History obtained from: Patient - History of Present Illness Timing: Prior to arrival - Additonal information Additional information: Patient is a 59-year-old male presenting to the emergency department with right leg pain and swelling. Symptoms have been going on for the past 2 days. Patient was seen here yesterday and started on antibiotics after receiving a dose of Rocephin here in the emergency department. Patient was started on ciprofloxacin and given 19 tablets to take at home. Patient has taken 3 of these tablets. He notes redness progressively worsened up his leg. He notes he had chills overnight and fever of 101 overnight. Patient has not taking anything other than the antibiotics for his symptoms. He has been trying to keep his leg elevated. Patient is a diabetic but not on medication as he is bor [facility]. Patient notes he has a recurrent history of infections to bilateral legs. PD PAST MEDICAL HISTORY - Past Medical History Past Medical History: Yes Cardiovascular: None Respiratory: None Neuro: None Endocrine/Autoimmune: None GI: None : None HEENT: None Psych: None Musculoskeletal: None Derm: None - Past Surgical History Past Surgical History: No HEENT: Tonsil/Adenoidectomy - Present Medications Home Medications: Ambulatory Orders Medication Instructions Recorded Confirmed clindamycin HCL [Cleocin HCl] 450 mg PO TID 10 Days #30 cap 02/26/24 Ciprofloxacin HCl [Cipro] 500 mg PO BID #19 tablet 03/24/24 - Allergies Allergies/Adverse Reactions: Allergies Allergy/AdvReac Type Severity Reaction Status Date / Time No Known Drug Allergies Allergy Verified 03/25/24 20:27 - Social History Does the pt smoke?: No Smoking Status: Never smoker Does the pt drink ETOH?: Yes Does the pt have substance abuse?: No - Immunizations Immunizations are current?: Yes - POLST Patient has POLST: No PD ED PE NORMAL - Vitals Vital signs reviewed: Yes - General General: Alert and oriented X 3 - HEENT HEENT: Atraumatic - Neck Neck: Supple, no meningeal sign - Cardiac Cardiac: RRR, No murmur, No gallop, No rub - Respiratory Respiratory: No respiratory distress, Clear bilaterally - Abdomen Abdomen: Normal bowel sounds - Extremities Extremities: No deformity, No edema, No calf tenderness / cord (Erythema noted to right leg. No pitting edema. There appears to be awound to his right digit that has closed and no signs of discharge.), Other - Free text exam Free text exam: No no appreciable streaking up the leg no palpable inguinal lymphadenopathy. Full range of motion to digits. No significant swelling compared to left leg. Leg is hot to touch with erythema extending up from midfoot to right below the knee Results - Vitals Vitals: Vital Signs - 24 hr 03/25/24 20:27 Temperature 36.7 C Heart Rate 88 Respiratory 16 Rate Blood Pressure 170/80 H O2 Saturation 98 Oxygen O2 Source Room air PD Medical Decision Making - ED course Complexity details: reviewed old records, reviewed results ED course: Patient is a 59-year-old male presenting to the emergency department with leg redness. Symptoms have been going on for approximately 2 days. Patient was seen here yesterday after small area of redness to his anterior tibia. Patient was discharged home with antibiotics after cultures were reviewed from March 10 by his PCP after he received Bactrim antibiotics for a right toe wound. This wound appears to have closed but susceptibility to these cultures were reviewed and patient was started on ciprofloxacin which she took about 3 doses about this time. Patient notes fevers and chills overnight but on arrival patient is afebrile nontachycardic. Physical exam shows erythema from mid right foot to right below right knee. Warm to touch but full range of motion of knee ankle and toes intact. No signs of open wounds. No signs of blisters. No discharge from the wounds. Patient unable to bear weight on it. At this point I do not suspect obtaining labs or any imaging would be helpful at this point is low suspicion for any PE and although patient most likely have cellulitis to right leg obtaining labs would not be helpful at this point as patient needs to continue on antibiotics. Discussed with patient at least 48 hours to 72 hours of antibiotics for patient's symptoms to improve. He was instructed to keep leg elevated at home watch for any persistent fevers palpitations severe pain to his leg or discoloration. A line was drawn around area of erythema and instructed to return if erythema continues or streaking up the leg continues. Patient understands and is agreeable with this plan. Departure - Departure Disposition: 01 Home, Self Care Clinical Impression: Cellulitis of right leg, Abrasion, Borderline type 2 diabetes mellitus Condition: Good Instructions: Cellulitis Dc Comments: You were seen here in the emergency department for your right leg cellulitis. Your were seen here yesterday for similar symptoms you are started on antibiotics. You have only taken 3 doses in less than 24 hours. You need to continue taking antibiotics if you continue to have pain redness or streaking up your leg you can return to the emergency department. However at this time I recommend continuing with antibiotics and returning with any worsening pain fevers swelling or streaking. Forms: PCP List
[2024-03-25 20:40] VITALS: BP 170/80; O2SAT 98
== END 2024-03-25 21:20 | disposition home or self-care (01) ==
LOC: ED 20:24
DX: L03.115 Cellulitis of right lower limb (principal); S80.811A Abrasion, right lower leg, initial encounter; X58.XXXA Exposure to other specified factors, initial encounter
CPT/HCPCS: 99281; 99283

== ENCOUNTER 2024-03-27 07:17 | Outpatient (CLI) | payer BC ==
[2024-03-27 07:49] LABS: BASOPHILS % (AUTO) 0.3 %; EOSINOPHILS # (AUTO) 0.1 10^3/uL (0.0-0.7); HCT - HEMATOCRIT 40.5 % (42.0-52.0); HGB - HEMOGLOBIN 13.7 g/dL (14.0-18.0); LYMPHOCYTES % (AUTO) 25.1 %; MEAN CORPUSCULAR HEMOGLOBIN 31.7 pg (27.0-31.0); MEAN CORPUSCULAR HGB CONC 33.8 g/dL (32.0-36.0); MEAN CORPUSCULAR VOLUME 93.8 fL (80.0-94.0); MEAN PLATELET VOLUME 10.1 fL (7.4-11.4); MONOCYTES # (AUTO) 0.5 10^3/uL (0.0-1.0); MONOCYTES % (AUTO) 12.1 %; NEUTROPHILS # (AUTO) 2.4 10^3/uL (1.5-6.6); NEUTROPHILS % (AUTO) 59.2 %; PLT - PLATELET COUNT 129 10^3/uL (130-450); RED BLOOD COUNT 4.32 10^6/uL (4.70-6.10); RED CELL DISTRIBUTION WIDTH 12.7 % (12.0-15.0)
[2024-03-27 07:51] LABS: ALBUMIN 3.9 g/dL (3.2-5.5); ALBUMIN/GLOBULIN RATIO 1.1 (1.0-2.2); ALKALINE PHOSPHATASE 52 IU/L (42-121); ALT ALANINE AMINOTRANSFERASE 29 IU/L (10-60); AST ASPARTATE AMINOTRANSFERASE 26 IU/L (10-42); BUN - BLOOD UREA NITROGEN 15 mg/dL (6-20); CALCIUM 8.9 mg/dL (8.5-10.3); CARBON DIOXIDE - CO2 27 mmol/L (21-32); CHLORIDE 100 mmol/L (101-111); CHOL/HDL RATIO 3.7 (<5.0); CHOLESTEROL 157 mg/dL; CREATININE 1.3 mg/dL (0.6-1.3); GFR - MDRD 57 (>89); GLUCOSE 117 mg/dL (74-104); HDL CHOLESTEROL 42 mg/dL; LDL CHOLESTEROL,CALCULATED 86 mg/dL; POTASSIUM 3.8 mmol/L (3.5-4.5); SODIUM 134 mmol/L (135-145); TOTAL PROTEIN 7.3 g/dL (6.4-8.9); TRIGLYCERIDES 146 mg/dL; VLDL CHOLESTEROL 29 mg/dL
[2024-03-27 08:02] LABS: THYROID STIMULATING HORMONE 13.21 uIU/mL (0.34-5.60)
[2024-03-27 09:05] LABS: CREATININE,URINE 286.8 mg/dL; MICROALBUM/CREATININE RATIO,UR 5.2 ug/mg (<30.0); MICROALBUMIN,URINE 1.5 mg/dL
[2024-03-27 09:35] LABS: ESTIMATED AVERAGE GLUCOSE 111 mg/dL (70-100); HEMOGLOBIN A1c% 5.5 % (4.27-6.07)
== END 2024-03-27 07:18 | disposition home or self-care (01) ==
LOC: LAB 07:17
PROVIDERS: ATTEND Registered Nurse
DX: R73.9 Hyperglycemia, unspecified (principal); Z13.228 Encounter for screening for other metabolic disorders; Z13.220 Encounter for screening for lipoid disorders; Z13.29 Encounter for screening for other suspected endocrine disorder; Z13.0 Encounter for screening for diseases of the blood and blood-forming organs and certain disorders involving the immune mechanism
CPT/HCPCS: 36415; 80053; 80061; 82043; 82570; 83036; 83721; 84439; 84443; 85025